=== PATIENT | male | born 1960 | race African-American/Black ===

== ENCOUNTER 2019-09-27 13:33 | Emergency (ER) | payer MEDICARE, MEDICAID ==
[~2019-09-27] VITALS: Ht 190.5 cm; Wt 86.0 kg
[2019-09-27] MEDS ORDERED: SODIUM CHLORIDE 0.9% 1,000 ML IV ONE (14:15)
[2019-09-27] MEDS ORDERED: METOCLOPRAMIDE HCL 10MG/2ML VIAL IV ONE (14:15)
[2019-09-27] MEDS ORDERED: MECLIZINE 25MG TABLET PO ONE (14:15)
[2019-09-27 14:16] LABS: BASOPHILS % 0.4 % (0.0-2.0); EOSINOPHILS % 0.6 % (0.0-5.0); HEMATOCRIT. 46.2 % (42.0-52.0); HEMOGLOBIN. 15.6 g/dL (14.0-18.0); LYMPHOCYTES % 31.6 % (20.0-50.0); MEAN CORPUSCULAR HEMOGLOBIN 28.6 pg (28.0-32.0); MEAN CORPUSCULAR VOLUME 84.7 fL (80.0-94.0); MEAN PLATELET VOLUME 8.4 fl (7.4-10.4); MONOCYTES % 7.6 % (2.0-8.0); NEUTROPHILS % 59.8 % (40.0-76.0); PLATELET 183 x1000/uL (130-400); RED BLOOD CELL COUNT 5.46 mill/uL (4.7-6.1); RED CELL DISTRIBUTION WIDTH 15.1 % (11.6-14.6)
[2019-09-27 14:21] LABS: CHLORIDE 111 mEq/L (98-107)
[2019-09-27] MEDS ORDERED: ONDANSETRON 4MG ODT PO ONE (16:15)
[2019-09-27 17:45] VITALS: BP 140/82
== END 2019-09-27 17:45 | disposition home or self-care (01) ==
LOC: ER 13:33
DX: R42 Dizziness and giddiness (principal); R11.2 Nausea with vomiting, unspecified; K21.9 Gastro-esophageal reflux disease without esophagitis; I10 Essential (primary) hypertension
CPT/HCPCS: 36415; 80053; 84484; 85025; 93005; 96361; 96374; 99284; J2765; J7030; J8597; Q0162

== ENCOUNTER 2022-12-12 12:58 | Emergency (ER) | payer MEDICARE, MEDICAID ==
[~2022-12-12] VITALS: Ht 177.8 cm; Wt 91.0 kg
[2022-12-12 13:03] VITALS: BP 100/53; PULSE 59; RESP 18; TEMP 98.8; O2SAT 99
[2022-12-12] MEDS ORDERED: ONDANSETRON HCL 4MG/2ML INJ IV ONE (13:30)
[2022-12-12 14:33] LABS: HEMATOCRIT. 42.3 % (42.0-52.0); HEMOGLOBIN. 13.6 g/dL (14.0-18.0); MEAN CORPUSCULAR HEMOGLOBIN 27.1 pg (28.0-32.0); MEAN CORPUSCULAR HGB CONC 32.1 g/dL (31.0-37.0); MEAN CORPUSCULAR VOLUME 84.5 fL (80.0-94.0); PLATELET 199 x1000/uL (130-400); RED BLOOD CELL COUNT 5.01 mill/uL (4.7-6.1); RED CELL DISTRIBUTION WIDTH 15.1 % (11.6-14.6); WHITE BLOOD COUNT 11.8 x1000/uL (4.5-11.0)
[2022-12-12 14:39] LABS: CHLORIDE 107 mEq/L (98-107); INDEX HEMOLYSI 1 (1-3); INDEX ICTERIC 1 (1-4); INDEX LIPEMIC 1 (1-3); POTASSIUM 3.3 mEq/L (3.5-5.1); SODIUM 138 mEq/L (136-145)
[2022-12-12 14:47] LABS: DIFFERENTIAL COMMENT 1
[2022-12-12 14:50] LABS: ALANINE AMINOTRANSFERASE 35 IU/L (13-61); ALBUMIN 3.6 g/dL (3.4-5.0); ASPARTATE AMINOTRANSFERASE 22 IU/L (15-37); BILIRUBIN TOTAL 0.4 mg/dL (0.1-1.0); CALCIUM 8.6 mg/dL (8.5-10.1); CARBON DIOXIDE 28 mEq/L (21-32); CREATININE 1.1 mg/dL (0.6-1.3); GLUCOSE 122 mg/dL (70-105); NT PRO B-TYPE NATRIURETIC PEP 13 pg/mL (5-125); PROTEIN TOTAL 6.9 g/dL (6.0-8.3); TROPONIN I HIGH SENSITIVITY 11 ng/L (<78); UREA NITROGEN BLOOD 17 mg/dL (7-21)
[2022-12-12] MEDS ORDERED: ONDANSETRON HCL 4MG/2ML INJ IV NR (16:00)
[2022-12-12 18:25] LABS: ANISOCYTOSIS 1+; PLATELET ESTIMATE NORMAL
== END 2022-12-12 17:30 | disposition home or self-care (01) ==
LOC: ER 13:04
DX: R42 Dizziness and giddiness (principal); R11.2 Nausea with vomiting, unspecified; K21.9 Gastro-esophageal reflux disease without esophagitis; I10 Essential (primary) hypertension
CPT/HCPCS: 99285; 96374; 71045; 80053; 83880; 85025; 84484; 36415; 93005; J2405